=== PATIENT | female | born 1955 | race Caucasian/White ===

== ENCOUNTER 2018-02-25 09:26 | Day surgery (SDC) | payer OTHER ==
[2018-02-25] MEDS ORDERED: BUPIVACAINE HCL 0.25% MPF 30 ML SOL INFIL ONE (10:18)
[2018-02-25] MEDS ORDERED: DEXAMETHASONE SOD PHOS PF 10 MG/ML SOL IJ ONE (10:18)
[2018-02-25 10:54] VITALS: BP 118/73; PULSE 78; RESP 20; TEMP 98.5; O2SAT 95
== END 2018-02-25 11:15 | disposition home or self-care (01) | DRG 552 ==
LOC: SURG 09:26
PROVIDERS: ATTEND Nurse Anesthetist, Certified Registered
DX: M51.17 Intervertebral disc disorders with radiculopathy, lumbosacral region (principal); E11.9 Type 2 diabetes mellitus without complications
CPT/HCPCS: J1100